=== PATIENT | male | born 1960 | race African-American/Black ===

== ENCOUNTER → 2019-05-06 | Outpatient (CLI) | payer OTHER ==
[~2019-05-06] MED LIST: IOPAMIDOL 370 MG/ML 200 ML INFUS..BTL INJ ONE; LEVETIRACETAM500 MG PO; LISINOPRIL-HCT1 EACH PO; NIFEDIPINE ER90 MG PO; OXYMETAZOLINE HCL 0.05% NAS 1 SPRAY BTL ONE; SODIUM CHLORIDE 0.9% 50ML 50 ML ONE
[2019-05-06 13:03] LABS: BLOOD UREA NITROGEN 15 mg/dL (7-26); BUN/CREATININE RATIO 14 (6-25); CREATININE, SERUM 1.07 mg/dL (0.72-1.25); EST GLOMERULAR FILTRATION RATE > 60 ML/MIN (60-)
--- NOTE | 2019-05-06 13:48 | Diagnostic Imaging Report ---
EXAM: CT Pelvis WITH intravenous contrast INDICATION: Concern for malignancy COMPARISON: None. TECHNIQUE: The pelvis was scanned utilizing a multidetector helical scanner from the mid abdomen to the pubic symphysis after administration of IV contrast. Coronal and sagittal reformations were obtained. Routine protocol was performed. Scan was performed when during portal venous phase. IV CONTRAST: 100 mL of Isovue-370 ORAL CONTRAST: Water COMPLICATIONS: None RADIATION DOSE: Total DLP: 400.83 mGy*cm Dose modulation, iterative reconstruction, and/or weight based adjustment of the mA/kV was utilized to reduce the radiation dose to as low as reasonably achievable. FINDINGS: PELVIC ORGANS/BLADDER: The prostate measures 4.6 x 4.1 cm. The bladder is nondistended. PERITONEUM / RETROPERITONEUM: No free air or fluid. LYMPH NODES: No lymphadenopathy. VESSELS: Atherosclerotic calcifications involve the lower abdominal aorta, bilateral common iliac arteries and major branches. GI TRACT: Colonic diverticulosis with no CT evidence of diverticulitis. Normal bowel thickening or bowel distention. BONES AND SOFT TISSUES: There are numerous sclerotic lesions involving the entirety of the visualized skeleton, most notably involving the bilateral iliac bones and both proximal femoral. No acute fracture or dislocation. IMPRESSION: Numerous sclerotic osseous lesions, concerning for metastatic disease in a patient with clinical suspicion for prostate cancer. Prostate is mildly enlarged by size, however CT is not optimized for evaluation of prostate malignancy. If detailed evaluation of the prostate soft tissue is indicated, consider prostate MRI. Signed by: Cody Adame MD on 05/06/2019 1:44 PM
--- NOTE | 2019-05-06 21:39 | Diagnostic Imaging Report ---
Bone Scan, delayed phase INDICATION: C61.0 Neoplasm of prostate COMPARISON: CT pelvis 05/06/2019 REPORT: Approximately 3 hours following intravenous administration of 27.5 mCi of Tc-99m MDP, delayed total body images in the anterior and posterior projections were obtained. Innumerable foci of increased tracer are seen in the skull, cervical and thoracolumbar spine, ribs anteriorly and posteriorly, manubrium, sternal body, scapulae, clavicles, all bones of the pelvis, bilateral femoral heads/necks/trochanters and bilateral femoral shafts, and bilateral humeri. No abnormal accumulation of tracer is seen in the soft tissues or urinary tract. IMPRESSION: Widespread metastatic bone disease involving the skull, spine, thorax, pelvis and proximal long bones of each extremity. Signed by: Dr. Leia Byrne M.D. on 05/06/2019 9:36 PM
== END ==
LOC: NM 11:47
PROVIDERS: ATTEND Urology
DX: R97.20 Elevated prostate specific antigen [PSA] (principal); D40.0 Neoplasm of uncertain behavior of prostate
CPT/HCPCS: 36415; 72193; 78306; 82565; 84520; A9503; Q9967